=== PATIENT | male | born 1935 ===

== ENCOUNTER 2021-08-13 13:06 | Outpatient (CLI) | payer MEDICARE ==
--- NOTE | 2021-08-13 13:54 | SLEEP CARE CONSULTATION ---
Information from patient questionnaire entered by Toney Coleman MA. I have reviewed and concur with the information entered by Toney Coleman MA. This document represents the service I personally performed and the decisions made by , Tamar Lim ARNP. History of Present Illness Service Date and Time: 08/13/2021 1306 Reason for Visit: New patient (onset 04/1965, on cpap,), Previously diagnosed sleep apnea, sleep apnea on CPAP therapy Chief Complaint: reports: Other (Update supplies) Date of Onset: SOME YEARS Usual bedtime: 1145 -1200 Time it takes to fall asleep: 2-4 MINUTES Snores at night: Yes Observed to quit breathing while asleep: No Number of times waking at night: 0-1 Toss, Turn, or Twitch while sleeping: No Recalls having dreams: No (seldom) Usually gets out of bed at: 0700 Feels refreshed in the morning: Yes Morning headache: No Sleepy or fatigued during the day: No Ever fallen asleep while driving: No Takes day naps: Yes (daily 1-1.5 hours) Dreams during day naps: No Prior sleep studies: Yes Year and Where: [facility], 2012 Type of Sleep Study: Polysomnography Additional HPI information: MATT BARTON was previously diagnosed to have very severe, AHI 61.3, obstructive sleep apnea-hypopnea syndrome and comes in today to establish care for CPAP therapy. - Parasomnia Symptoms Ever been unable to move upon waking from sleep: No Walks in sleep: No Talks in sleep: No Ever acted out dreams in sleep: No Ever felt weak in the knees when startled or emotional: No Bothered by creepy, crawly, restless sensations in legs: No Problems with memory or concentration: No CPAP Compliance Data - Data Reviewed with Patient Average duration of nightly device use: 8 hours 2 minutes Compliance rate %: 86.7 (30 days) Current pressure setting (cmH2O): 10-12 Average residual AHI: 19.4 Central apnea: 1.6 Obstructive apnea: 17.1 Hypopnea: 0.7 Average large leak: 0 Compliance data discussion: He is getting supplies on his own online, pays out of pocket. He is using a full face hybrid mask, Dreamwear. He changes his mask about 1 year. Subjective Patient concerns: reports: dry mouth, nose, throat (heating element in the humidifier not working ). denies: aerophagia, mask discomfort, air blowing in eyes, mask leak noise, condensation in mask/hose, nasal congestion, epistaxis, other Observed to snore while using device: No Current pressure setting perceived as: comfortable On therapy, patient: reports: sleeping better, awakening more refreshed, being more awake and alert during the day, more rested overall. denies: drowsiness while driving Initial Arnold Sleepiness Scale score: 16 (07/2021) Past Medical History Past Medical History: reports: Diabetes (borderline DM), Other (enlarged pros galloway) Social History The patient's occupation is a RE. Patient is and lives in [place]. Have you smoked in the past 12 months: No Alcohol use: Yes Alcohol amount and frequency: 1 X DAILY Caffeine use: Yes Caffeine amount and frequency: 4 X DAILY Family History Family history of sleep disordered breathing: No Allergies and Home Medications Known drug allergies: No Drug allergies reviewed: Yes (Lipitor) Home medication list reviewed: Yes Allergy and home medication list: Medications: Metformin 500 mg daily Tamsulosin 0.4 mg 2 capsules nightly Pravastatin sodium 80 mg daily Aspirin 81 mg daily Vitamin D3 125 mg daily Review of Systems Weight loss over past 5 years: 10 Physical Exam Vital signs obtained and entered by: STEFFANY JORDAN Blood Pressure: 145/83 (RESP 18, PULSE 79, LEFT, ) Heart Rate: 82 O2 Saturation: 96 (PAPER MASK) Height: 5 ft 7 in Weight: 140 lb Body Mass Index: 21.9 BMI Classification: Healthy weight Neck circumference: 15.5 (INCHES) Heart: regular rate and rhythm Lungs: clear bilaterally Impression and Plan 1. Obstructive Sleep Apnea-Hypopnea Syndrome, very severe, with good treatment compliance and fair apnea control with elevation of residual AHI. On CPAP therapy, the patient has better sleep quality and is more rested overall. Patient has a Moe RemStar. The heating element on the humidifier is not working. Patient has already registered their device for the recall. Since the patients current machine is at least 5 years old, the patient is opting to update their device with a device that is not on the recall. Thus, the CPAP will be updated. The new CPAPs also have a better humidity system which could assist control of patients dryness symptoms. A DWO prescription will be made. Compliance guidelines for new device and follow up discussed. Patient voiced understanding and agreement with plan. Patient's apnea severity and rationale for treatment to reduce apnea, improve sleep quality and reduce cardiovascular and cerebrovascular events was reviewed. I also reviewed the benefit of consistent device use of CPAP for borderline diabetes. * Continue auto CPAP pressure at 10-12 cmH2O * Update machine * Update supplies * Notify me if snoring with mask or feeling that the pressure is too much or too little * Attempt to lose weight * Call this office if any problems using CPAP * Return for follow up one month after obtaining new device, or sooner if concerns arise Counseling Topics: Spare mask, Weight control Visit Type: In Office Time Spent with Patient (minutes): 36 Provider Statement: I spent 100% of the Face to Face Visit with the patient with greater than 50% spent counseling the patient and coordination of care.
[2021-08-13 13:55] VITALS: BP 145/83
== END 2021-08-13 13:07 | disposition home or self-care (01) ==
LOC: SC 13:06
PROVIDERS: ATTEND Nurse Practitioner Family
DX: G47.33 Obstructive sleep apnea (adult) (pediatric) (principal)
CPT/HCPCS: 99203; G0463; 99212